=== PATIENT | female | born 1985 | race Caucasian/White ===

== ENCOUNTER 2021-09-21 22:25 | Inpatient (IN) | payer SELFPAY ==
[2021-09-21 23:09] VITALS: BMI 19.1
[2021-09-22 00:48] VITALS: BP 102/75; PULSE 110; RESP 16; TEMP 36.6; O2SAT 99
[2021-09-22 06:00] VITALS: BP 102/70; PULSE 73; RESP 16; TEMP 36.9; O2SAT 98
--- NOTE | 2021-09-22 11:12 | W.PM.NPUH&PS ---
Providers/Chief Complaint Admitting Physician: David Talley MD Chief Complaint: SI HPI NPU History of Present Illness Elaine Madera is a 35 year old female who presented to the outside hospital endorsing suicidal ideation, need for detox, addiction, and feeling like she cannot go on. She was transferred to [facility] and admitted to the neuropsychiatric unit for definitive treatment of those issues. She presents today reporting that she has never had psychiatric inpatient services in the past, that she has really not had outpatient services in the past, and that she has never been on significant medication. She reports that she smokes about four cigarettes a day, denies alcohol use. She reports she smokes marijuana daily. She denies cocaine, methamphetamine, but does endorse IV opiates. She reports she has been to rehab one time and has had DUI?s and some past possession charges. She reports that she has always had difficulties with addiction and that around five years ago, things got really bad. There were a lot of challenges in her life and her addiction really got out of control. She reports that her mood really suffered, and she has had multiple times where she has begun to feel suicidal and like she could not continue. She reports that she feels that the primary issue is her inability to manage her sobriety creating a life that she cannot endure. She reports that she had gotten herself organized enough to get detoxed, recently going to [place] for detox, and then trying again recently in [place]. She had an assessment at [facility] and was supposedly going to a [facility] detox, and after the woman who assessed her left the room, she called a friend and was taken away by the friend before she could go to the detox, and this was several days ago. We discussed the risks, benefits, and alternatives of some medications to assist with her mood, and she was willing to consider that, but also was thinking about Vivitrol as an option. She understood and agreed to proceed as is documented in this note. We did discuss how for Vivitrol she would have to have the seven days of not using before that could be an option for her. PSYCHIATRIC HISTORY: As above. SUBSTANCE ABUSE HISTORY: As above. FAMILY HISTORY: There are no mental health or addiction issues on either side of the family, and no suicide attempts or completions in the family reported. DEVELOPMENTAL HISTORY: She denies any issues with her mother?s or delivery of her. She met all developmental milestones on time. She denies any speech therapy, learning support, emotional support, or special education classes. PSYCHOSOCIAL HISTORY: She endorses her parents were together when she was born and reports that she has an older sister that is the product of that union. Neither of her parents have any other children. She endorses that her childhood was good, and she denies any emotional, physical, or sexual abuse. She denies any CYS involvement. She denies being in placement for truancy or any other issues. She endorses that she graduated from high school but denies any additional training. She endorses being a heterosexual with her longest relationship being a few years. She has never been , but she does have three children, a 14-year-old boy, and then a 12 and 11-year-old girls. The 14-year-old boy is with her grandmother. The girls are with their dad. She denies ever being in the or having any restorationist belief system. She reports she has only ever worked for a couple of months. She is currently homeless. LEGAL HISTORY: She reports she has been in custodial a few times, maybe the longest time was for a month. MEDICAL HISTORY: She denies any significant medical history. Meds NPU Home Medications Medication Instructions Recorded Confirmed Last Taken Type No Known Home Medications 09/22/21 09/22/21 Unknown History Allergies Allergy/AdvReac Type Severity Reaction Status Date / Time Penicillins Allergy Unknown Verified 09/22/21 00:45 povidone-iodine Allergy Unknown Verified 09/22/21 00:45 [From Betadine] Mental Status Exam MSE Comments: This is a slender, white female, in hospital scrubs, with limited grooming, but adequate eye contact. No abnormal movements except for psychomotor retardation. Cooperative with exam in mild distress. Speech was decreased rate and volume. Mood described as tired; affect congruent. Thought process, organized. Thought content: patient denied any suicidal or homicidal ideation, there were no delusions reported or noted, patient denied any auditory or visual hallucinations. Attention, concentration, and memory appear intact but were not formally tested. She is alert and oriented times three. Insight and judgment are good. Vitals/I&O/Wt Last Vital Signs Temp 98.4 F 09/22/21 06:00 Pulse 73 09/22/21 06:00 Resp 16 09/22/21 06:00 BP 102/70 09/22/21 06:00 Pulse Ox 98 09/22/21 06:00 Weight last 48 hrs Weight 45.4 kg A&P Assessment and plan (1) Depression: Status: Acute (2) Suicidal ideation: Status: Acute (3) Anxiety: Status: Acute (4) Opiate dependence: Status: Acute Additional A&P Information This is a 35-year-old, white female, with a long history of addiction and recent escalating depression, and anxiety, as a product of the consequences of her addicted behavior, who presents with suicidal thoughts and open to get her addiction under control in hopes that will help her with her mental health issues. RECOMMENDATION AND PLAN: 1. Continue current medication. We will assist her in the possibility of getting connected with Vivitrol by starting [place] in several days if she is still on the unit. She is considering an antidepressant at this time. 2. Encourage individual, group, and milieu therapy. 3. Continue q-15 minute checks for safety. 4. Encourage sober living treatment after discharge, at the highest level of care, to which she is willing to commit. Involuntary Hold Information 96 Hour Hold: 96 Hour Involuntary Admission: No Attestations NPU Medical Necessity Statement*: Inpatient hospitalization is medically necessary and the clinically appropriate intervention, at this time. We will monitor medications and make changes as indicated. Patient will be in the hospital for over two midnights. Likely length of stay is three to five days. Coding Level of Care Code Acute Neurosurgery Research Director for Elena Rangel Diagnoses Depression F32.A Suicidal ideation R45.851 Anxiety F41.9 Opiate dependence F11.20
[2021-09-22 14:00] VITALS: BP 112/80; PULSE 108; RESP 18; TEMP 36.6; O2SAT 98
[2021-09-22] MEDS: hyDROXYzine 25 mg Capsule 50 MG PO (20:16)
[2021-09-22] MEDS: trazodone 50 mg Tablet PO (20:16)
[2021-09-22 21:13] VITALS: BP 116/79; PULSE 92; RESP 15; TEMP 36.4; O2SAT 98
[2021-09-23 06:00] VITALS: BP 119/75; PULSE 61; RESP 16; TEMP 36.5; O2SAT 99
[2021-09-23 14:00] VITALS: BP 119/75; PULSE 61; RESP 16; TEMP 36.5; O2SAT 99
--- NOTE | 2021-09-23 18:50 | W.PM.NPUPNS ---
Subjective NPU Subjective: Interval history: Patient presents today reporting that she still thinking about whether she would want to start antidepression/antianxiety medication. That being said her mind is still open to the possibility of ReVia and ultimately Vivitrol. We have reached out to [facility] is in [place] to see if these have any new bed availability or by chance help in her bed which is unlikely. We agreed that we would be able to have more focused exploration of detox/rehab options in the morning. Mental Status Exam MSE Comments: This is a slender, white female, in hospital scrubs, with limited grooming, but adequate eye contact. No abnormal movements except for psychomotor retardation. Cooperative with exam in no acute distress. Speech was decreased rate and volume. Mood described as okay; affect congruent. Thought process, organized. Thought content: patient denied any suicidal or homicidal ideation, there were no delusions reported or noted, patient denied any auditory or visual hallucinations. Attention, concentration, and memory appear intact but were not formally tested. She is alert and oriented times three. Insight and judgment are fair to good, impulse control limited. Vitals/I&O/Wt Last Vital Signs Temp 98.1 F 09/23/21 20:06 Pulse 65 09/23/21 20:06 Resp 18 09/23/21 20:06 BP 112/76 09/23/21 20:06 Pulse Ox 99 09/23/21 20:06 A&P Additional A&P Information (1) Depression: (2) Suicidal ideation: (3) Anxiety: (4) Opiate dependence: Additional A&P Information This is a 35-year-old, white female, with a long history of addiction and recent escalating depression, and anxiety, as a product of the consequences of her addicted behavior, who presents with suicidal thoughts and open to get her addiction under control in hopes that will help her with her mental health issues. RECOMMENDATION AND PLAN: 1. Continue current medication. We will assist her in the possibility of getting connected with Vivitrol by starting Revia in several days if she is still on the unit. She is considering an antidepressant at this time. 2. Encourage individual, group, and milieu therapy. 3. Continue q-15 minute checks for safety. 4. Encourage sober living treatment after discharge, at the highest level of care, to which she is willing to commit. Involuntary Hold Information 96 Hour Hold: 96 Hour Involuntary Admission: No Attestations NPU Medical Necessity Statement*: Inpatient hospitalization is medically necessary and the clinically appropriate intervention at this time. We will monitor medication to make changes as indicated. Likely length of stay 2-4 days. Coding Level of Care Code Acute Rehabilitation Specialist for Elena Rangel
[2021-09-23] MEDS: trazodone 50 mg Tablet PO (19:42)
[2021-09-23] MEDS: hyDROXYzine 25 mg Capsule 50 MG PO (19:42)
[2021-09-23 20:06] VITALS: BP 112/76; PULSE 65; RESP 18; TEMP 36.7; O2SAT 99
[2021-09-24 06:00] VITALS: BP 127/80; PULSE 65; RESP 16; TEMP 36.7; O2SAT 99
--- NOTE | 2021-09-24 11:13 | P.NPUPN_ITS ---
Subjective NPU Subjective: Interval history: Patient presents today reporting that she is feeling optimistic because [facility] is saying they will take her again. She is excited about that but reports she needs to go to [place] first because that is where her stuff is at her friend's house and that her friend said that she would take her to [facility]'s tomorrow. At this point she still is ambivalent about considering medication other than her desire for ReVia/Vivitrol when it is appropriate given her last day of use. Mental Status Exam MSE Comments: This is a slender, white female, in hospital scrubs, with limited grooming, but adequate eye contact. No abnormal movements except for psychomotor retardation. Cooperative with exam in no acute distress. Speech was decreased rate and volume. Mood described as better; affect congruent. Thought process, organized. Thought content: patient denied any suicidal or homicidal ideation, there were no delusions reported or noted, patient denied any auditory or visual hallucinations. Attention, concentration, and memory appear intact but were not formally tested. She is alert and oriented times three. Insight and judgment are fair to good, impulse control limited. Vitals/I&O/Wt Last Vital Signs Temp 98.0 F 09/24/21 06:00 Pulse 65 09/24/21 06:00 Resp 16 09/24/21 06:00 BP 127/80 09/24/21 06:00 Pulse Ox 99 09/24/21 06:00 A&P Additional A&P Information (1) Depression: (2) Suicidal ideation: (3) Anxiety: (4) Opiate dependence: Additional A&P Information This is a 35-year-old, white female, with a long history of addiction and recent escalating depression, and anxiety, as a product of the consequences of her addicted behavior, who presents with suicidal thoughts and open to get her addiction under control in hopes that will help her with her mental health issues. RECOMMENDATION AND PLAN: 1. Continue current medication. We will assist her in the possibility of getting connected with Vivitrol by starting Revia in several days if she is still on the unit. She is considering an antidepressant at this time. 2. Encourage individual, group, and milieu therapy. 3. Continue q-15 minute checks for safety. 4. Encourage sober living treatment after discharge, at the highest level of care, to which she is willing to commit. [facility] reports [facility] will take her back social work team working on arrangements. Involuntary Hold Information 96 Hour Hold: 96 Hour Involuntary Admission: No Attestations NPU Medical Necessity Statement*: Inpatient hospitalization is medically necessary and the clinically appropriate intervention at this time. We will monitor medication to make changes as indicated. Likely length of stay 1-3 days. Coding Level of Care Code Acute Investigator Internal Affairs for Elena Rangel
[2021-09-24 14:00] VITALS: BP 115/77; PULSE 61; RESP 15; TEMP 36.7; O2SAT 99
[2021-09-24] MEDS: hyDROXYzine 25 mg Capsule 50 MG PO (19:19)
[2021-09-24] MEDS: trazodone 50 mg Tablet PO (19:19)
[2021-09-24 19:27] VITALS: BP 98/67; PULSE 106; RESP 17; TEMP 36.6; O2SAT 96
--- NOTE | 2021-09-24 19:28 | PC.NURSE ---
pt requested sleep and anxiety meds. trazodone 50mg po for sleep and vistaril 50mg po for anxiety given.
[2021-09-25 06:00] VITALS: BP 119/78; PULSE 65; RESP 18; TEMP 36.6; O2SAT 99
[2021-09-25] MEDS: nicotine 2 mg Gum BUCCAL (12:24)
[2021-09-25 14:00] VITALS: BP 119/79; PULSE 77; RESP 18; TEMP 36.6; O2SAT 100
[2021-09-25] MEDS: hyDROXYzine 25 mg Capsule 50 MG PO ×2 (15:03→20:22)
[2021-09-25] MEDS: OLANZapine 5 mg ODT PO (15:03)
--- NOTE | 2021-09-25 16:08 | P.NPUPN_ITS ---
Subjective NPU Subjective: Interval history: Patient presents today reporting that she did talk to [facility] and they have said they will take her but it will be on . We discussed what he meant this or next because of some confusion and was uncertain. We discussed finding out that answer before we determine discharge date. We discussed that his next week that we would not be able to get [place] but is this week that be another consideration. There was some concern about the initial authenticity of her reporting about her situation in relation to preferred [facility]. She is adamant that it is her plan to go to this program which will be about a year. Mental Status Exam MSE Comments: This is a slender, white female, in hospital scrubs, with limited grooming, but adequate eye contact. No abnormal movements except for mild psychomotor retardation. Cooperative with exam in no acute distress. Speech was decreased rate and volume. Mood described as better; affect congruent. Thought process, organized. Thought content: patient denied any suicidal or homicidal ideation, there were no delusions reported or noted, patient denied an y auditory or visual hallucinations. Attention, concentration, and memory appear intact but were not formally tested. She is alert and oriented times three. Insight and judgment are fair, impulse control limited. Vitals/I&O/Wt Last Vital Signs Temp 97.8 F 09/25/21 22:00 Pulse 66 09/25/21 22:00 Resp 18 09/25/21 22:00 BP 105/63 09/25/21 22:00 Pulse Ox 99 09/25/21 22:00 A&P Additional A&P Information (1) Depression: (2) Suicidal ideation: (3) Anxiety: (4) Opiate dependence: Additional A&P Information This is a 35-year-old, white female, with a long history of addiction and recent escalating depression, and anxiety, as a product of the consequences of her addicted behavior, who presents with suicidal thoughts and open to get her addiction under control in hopes that will help her with her mental health issues. RECOMMENDATION AND PLAN: 1. Continue current medication. We will assist her in the possibility of getting connected with Vivitrol by starting Revia in several days if she is still on the unit. She is considering an antidepressant at this time. 2. Encourage individual, group, and milieu therapy. 3. Continue q-15 minute checks for safety. 4. Encourage sober living treatment after discharge, at the highest level of care, to which she is willing to commit. [facility] reports they will take her back social work team working on arrangements. If the plan is for next we will help her get to a support network to help her try to make it till then if it is this we will likely keep her till morning. Involuntary Hold Information 96 Hour Hold: 96 Hour Involuntary Admission: No Attestations NPU Medical Necessity Statement*: Inpatient hospitalization is medically necessary and the clinically appropriate intervention at this time. We will monitor medication to make changes as indicated. Likely length of stay 1-2 days. Coding Level of Care Code Acute Statistical Methods Professor for Elena Rangel
[2021-09-25] MEDS: haloperidol 5 mg Tablet PO (17:10)
--- NOTE | 2021-09-25 17:29 | PC.NURSE ---
prn Administered 5mg Haldol for severe anxiety 1 hour after giving zydis.
[2021-09-25] MEDS: trazodone 50 mg Tablet PO (20:22)
--- NOTE | 2021-09-25 21:00 | PC.NURSE ---
PT REQUESTED MEDS FOR SLEEP AND ANXIETY. TRAZODONE 50MG PO FOR SLEEP AND VISTARIL 50MG PO FOR ANXIETY GIVEN.
[2021-09-25 22:00] VITALS: BP 105/63; PULSE 66; RESP 18; TEMP 36.6; O2SAT 99
--- NOTE | 2021-09-25 22:00 | PC.NURSE ---
PT RESTING QUIETLY WITH BOTH EYES CLOSED.
[2021-09-26 06:00] VITALS: BP 96/61; PULSE 65; RESP 18; TEMP 36.9; O2SAT 99
[2021-09-26] MEDS: OLANZapine 5 mg ODT PO (11:30)
[2021-09-26] MEDS: hyDROXYzine 25 mg Capsule 50 MG PO (11:30)
[2021-09-26] MEDS: nicotine 2 mg Gum BUCCAL (13:54)
--- NOTE | 2021-09-26 15:42 | P.NPUDS_ITS ---
Diagnoses at Discharge Discharge Diagnosis (1) Depression: Status: Acute (2) Suicidal ideation: Status: Resolved (3) Anxiety: Status: Acute (4) Opiate dependence: Status: Acute Reason for Visit Reason for Visit: SI Brief History: History of Present Illness Elaine Madera is a 35 year old female who presented to the outside hospital endorsing suicidal ideation, need for detox, addiction, and feeling like she cannot go on. She was transferred to [facility] and admitted to the neuropsychiatric unit for definitive treatment of those issues. She presents today reporting that she has never had psychiatric inpatient services in the past, that she has really not had outpatient services in the past, and that she has never been on significant medication. She reports that she smokes about four cigarettes a day, denies alcohol use. She reports she smokes marijuana daily. She denies cocaine, methamphetamine, but does endorse IV opiates. She reports she has been to rehab one time and has had DUI?s and some past possession charges. She reports that she has always had difficulties with addiction and that around five years ago, things got really bad. There were a lot of challenges in her life and her addiction really got out of control. She reports that her mood really suffered, and she has had multiple times where she has begun to feel suicidal and like she could not continue. She reports that she feels that the primary issue is her inability to manage her sobriety creating a life that she cannot endure. She reports that she had gotten herself organized enough to get detoxed, recently going to [place] for detox, and then trying again recently in [place]. She had an assessment at [facility] and was supposedly going to a [facility] detox, and after the woman who assessed her left the room, she called a friend and was taken away by the friend before she could go to the detox, and this was several days ago. We discussed the risks, benefits, and alternatives of some medications to assist with her mood, and she was willing to consider that, but also was thinking about Vivitrol as an option. She understood and agreed to proceed as is documented in this note. We did discuss how for Vivitrol she would have to have the seven days of not using before that could be an option for her. PSYCHIATRIC HISTORY: As above. SUBSTANCE ABUSE HISTORY: As above. FAMILY HISTORY: There are no mental health or addiction issues on either side of the family, and no suicide attempts or completions in the family reported. DEVELOPMENTAL HISTORY: She denies any issues with her mother?s or delivery of her. She met all developmental milestones on time. She denies any speech therapy, learning support, emotional support, or special education classes. PSYCHOSOCIAL HISTORY: She endorses her parents were together when she was born and reports that she has an older sister that is the product of that union. Neither of her parents have any other children. She endorses that her childhood was good, and she denies any emotional, physical, or sexual abuse. She denies any CYS involvement. She denies being in placement for truancy or any other issues. She endorses that she graduated from high school but denies any additional training. She endorses being a heterosexual with her longest relationship being a few years. She has never been , but she does have three children, a 14-year-old boy, and then a 12 and 11-year-old girls. The 14-year-old boy is with her grandmother. The girls are with their dad. She denies ever being in the or having any episcopalian belief system. She reports she has only ever worked for a couple of months. She is currently homeless. LEGAL HISTORY: She reports she has been in residential a few times, maybe the longest time was for a month. MEDICAL HISTORY: She denies any significant medical history. Hospital Course Hospital Course She slowly acclimated to the individual, group and milieu therapies provided. After she had some improvement in her withdrawal symptoms she began to have improvement in her suicidal thinking. We were able to reconnect her with resources that she had neglected from [facility]. We were able to reconnect her with a outpatient support and plans to take her to the inpatient services when the bed is available next . She was able to contract for safety outside the hospital prior to discharge. She also reported feeling confident she was able to maintain her sobriety until next . She had modest improvement. At the outside hospital, patient had routine laboratory studies which were within normal limits except for few outliers. Additionally there was a general medical evaluation which was also within normal limits and revealed no new acute processes. Discharge Summary: At the time of discharge, she denied psychosis or lethality. Mood and anxiety were well managed. Patient endorsed a plan to avoid all drugs of abuse and follow-up with the aftercare recommendations of the treatment team. Patient was evaluated and deemed to be absent credible lethality, and had achieved the maximum benefit from an inpatient hospitalization, so was discharged. Involuntary Hold Information 96 Hour Hold: 96 Hour Involuntary Admission: No Mental Status Exam MSE Comments: This is a slender, white female, in hospital scrubs, with eye contact.. No abnormal movements except for mild psychomotor retardation. Cooperative with exam in no acute distress. Speech was more normal rate and volume. Mood described as better; affect congruent. Thought process, organized. Thought content: patient denied any suicidal or homicidal ideation, there were no delusions reported or noted, patient denied any auditory or visual hallucinations. Attention, concentration, and memory appear intact but were not formally tested. She is alert and oriented times three. Insight and judgment are fair, impulse control limited. Discharge Data Vitals: Last Vital Signs Temp 98.5 F 09/26/21 06:00 Pulse 65 09/26/21 06:00 Resp 18 09/26/21 06:00 BP 96/61 09/26/21 06:00 Pulse Ox 99 09/26/21 06:00 Discharge Plan Discharge Patient Disposition: Home Condition: Stable Prescriptions: Continued No Known Home Medications RF: 0 Discharge Orders: Discharge Order (Routine); Ordered 09/26/21 Ordered By: David Talley Referrals: [facility] [Other] Discharge Diet: Regular Discharge Activity: Resume usual activity Patient Instructions: Opioid Safety Discharge Attestations NPU Time Spent in Discharge Care*: less than 30 min Specific Discharge Activities: Specific discharge activities: educating patient, discussing with spring encaser/social workers/dc planners, documenting/other paperwork and evaluating patient/reviewing data Coding Level of Care Code Acute Chg DC note Diagnoses Depression F32.A Suicidal ideation R45.851 Anxiety F41.9 Opiate dependence F11.20
[2021-09-26 16:06] VITALS: BP 96/61; PULSE 65; RESP 18; TEMP 36.9; O2SAT 99
== END 2021-09-26 16:50 | disposition home or self-care (01) | DRG 881 ==
PROVIDERS: Admitting Provider Psychiatry & Neurology Psychiatry; Visit Provider Psychiatry & Neurology Psychiatry
DX: F32.A Depression, unspecified (principal); R45.851 Suicidal ideations; F11.20 Opioid dependence, uncomplicated; F17.210 Nicotine dependence, cigarettes, uncomplicated; F12.90 Cannabis use, unspecified, uncomplicated; Z59.00 Homelessness unspecified; F41.9 Anxiety disorder, unspecified
CPT/HCPCS: 97150; 97165